=== PATIENT | male | born 1985 | race Caucasian/White ===

== ENCOUNTER 2023-11-01 11:10 | Emergency (ER) | payer SELFPAY ==
[~2023-11-01] VITALS: Ht 175.2 cm; Wt 73.5 kg
[2023-11-01] MEDS ORDERED: PREDNISONE20 M1 PO (11:22)
[2023-11-01] MEDS ORDERED: predniSONE 20 MG TAB PO ONE (11:25)
[2023-11-01] MEDS ORDERED: CLOBETASOL PROPIONATE 30 GM TUBE T ONE (11:28)
== END 2023-11-01 11:25 | disposition home or self-care (01) ==
LOC: ED 11:10
DX: L25.9 Unspecified contact dermatitis, unspecified cause (principal)